=== PATIENT | male | born 1995 ===

== ENCOUNTER 2017-06-16 13:11 | Emergency (ER) | payer MEDICAID ==
[2017-06-16 13:12] VITALS: BMI 29.7
[2017-06-16 13:31] VITALS: BP 117/73; PULSE 74; RESP 18; TEMP 98.4; O2SAT 99
--- NOTE | 2017-06-16 13:54 | ED PDOC ---
HPI: CCC, URI, Sore Throat Time Seen by Provider: 06/16/17 13:15 Chief Complaint (Nursing): ENT Problem Chief Complaint (Provider): Sore throat History Per: Patient History/Exam Limitations: no limitations Have you had recent travel within the past 21 days to any of the following countries: [place], [place], [place] or [place]?: No Onset/Duration Of Symptoms: Days (4) Current Symptoms Are (Timing): Still Present Location Of Pain: Throat Sick Contacts (Context): None Associated Symptoms: Sore Throat Additional History Per: Patient Additional Complaint(s): The patient is a 21yo male, no past medical history, presents to the ED for evaluation of throat pain, present for the past 4 days. Patient reports the pain is worse at night and also reports some sputum. He denies any shortness of breath, chest pain and offers no additional medical complaints. Past Medical History Reviewed: Historical Data, Nursing Documentation, Vital Signs Vital Signs: Last Vital Signs Temp 98.4 F 06/16/17 13:28 Pulse 74 06/16/17 13:28 Resp 18 06/16/17 13:28 BP 117/73 06/16/17 13:28 Pulse Ox 99 06/16/17 13:58 - Medical History PMH: Bipolar Disorder Denies: Chronic Kidney Disease - Surgical History Surgical History: Appendectomy (laparoscopic, 01/2014 at [facility] [place]), Tonsillectomy - Family History Family History: States: Unknown Family Hx - Immunization History Hx Tetanus Toxoid Vaccination: No Hx Influenza Vaccination: No Hx Pneumococcal Vaccination: No - Home Medications Home Medications: Ambulatory Orders Medication Instructions Recorded Citalopram Hydrobromide [Celexa] 30 mg PO DAILY 10/27/16 [place] Carbonate [Lithobid] 300 mg PO BID 10/27/16 traZODone [trazODONE HYDROCHLORIDE] 50 mg PO HS 10/27/16 Methylprednisolone [Medrol Dose 4 mg PO DAILY #21 mg 06/16/17 Pack (21 tabs)] Promethazine HCl/Codeine 5 ml PO HS #80 ml 06/16/17 [Prometh-Codein 6.25-10 mg/5 ml] - Allergies Allergies/Adverse Reactions: Allergies Allergy/AdvReac Type Severity Reaction Status Date / Time No Known Allergies Allergy Verified 06/16/17 13:28 Review of Systems ROS Statement: Except As Marked, All Systems Reviewed And Found Negative Constitutional: Negative for: Fever, Chills ENT: Positive for: Throat Pain Cardiovascular: Negative for: Chest Pain Respiratory: Negative for: Shortness of Breath Physical Exam - Reviewed Nursing Documentation Reviewed: Yes Vital Signs Reviewed: Yes - Physical Exam Appears: Positive for: Well, Non-toxic, No Acute Distress Head Exam: Positive for: ATRAUMATIC, NORMAL INSPECTION, NORMOCEPHALIC Skin: Positive for: Normal Color, Warm, DRY Eye Exam: Positive for: EOMI, Normal appearance, PERRL ENT: Positive for: Normal ENT Inspection. Negative for: Pharyngeal Erythema, Tonsillar Exudate, Tonsillar Swelling Neck: Positive for: Normal, Supple Cardiovascular/Chest: Positive for: Regular Rate, Rhythm Respiratory: Negative for: Respiratory Distress Neurologic/Psych: Positive for: Alert, Oriented - ECG O2 Sat by Pulse Oximetry: 99 (RA) Pulse Ox Interpretation: Normal Medical Decision Making Medical Decision Making: Time: 1315 Impression: Cough, URI Plan: -- Rapid strep Reassess Strep (-) Scribe Attestation: Documented by Mary Jo Balderrama acting as a scribe for MICHAEL Lopez Provider Attestation: All medical record entries made by the Scribe were at my direction and personally dictated by me. I have reviewed the chart and agree that the record accurately reflects my personal performance of the history, physical exam, medical decision making, and the department course for this patient. I have also personally directed, reviewed, and agree with the discharge instructions and disposition. Disposition - Clinical Impression Clinical Impression: Pharyngitis - Patient ED Disposition Is Patient to be Admitted: No - Disposition Disposition: Routine/Home Disposition Time: 15:05 Condition: STABLE Prescriptions: Methylprednisolone [Medrol Dose Pack (21 tabs)] 4 mg PO DAILY #21 mg Promethazine HCl/Codeine [Prometh-Codein 6.25-10 mg/5 ml] 5 ml PO HS #80 ml Instructions: Pharyngitis (ED) Forms: [facility] (Hebrew) - POA Present On Arrival: None
== END 2017-06-16 15:38 | disposition home or self-care (01) ==
LOC: H.ER 13:11
DX: J02.9 Acute pharyngitis, unspecified (principal); F31.9 Bipolar disorder, unspecified

== ENCOUNTER 2017-09-01 14:18 | Emergency (ER) | payer MEDICAID ==
[2017-09-01 14:20] VITALS: BMI 29.7
[2017-09-01 14:48] VITALS: BP 127/78; PULSE 76; RESP 18; TEMP 98; O2SAT 99
--- NOTE | 2017-09-01 15:14 | ED PDOC ---
HPI: Psych/Substance Abuse Time Seen by Provider: 09/01/17 14:56 Chief Complaint (Nursing): Psychiatric Evaluation Chief Complaint (Provider): Insomnia History Per: Patient History/Exam Limitations: no limitations Onset/Duration Of Symptoms: Days (7) Current Symptoms Are (Timing): Still Present Suicide/Self Injury Attempted (Context): None Modifying Factor(s): None Associated Symptoms: denies: Suicidal Thoughts, Suicidal Plan Additional Complaint(s): 21yo male with history of bipolar disorder, currently on [place], Celexa and Trazodone, presents to the ED requesting evaluation as he has not been able to sleep properly for the past 7 days. Patient states he has been increasingly stressed due to heavy workload at school and is only able to sleep for 2-3 hours at a time. Patient states he called his psychiatrist but was not able to make an in person visit as he is not able to get an appointment until next month. Patient denies any suicidal ideation or homicidal ideation, hallucinations. He offers no physical complaints. Past Medical History Reviewed: Historical Data, Nursing Documentation, Vital Signs Vital Signs: Last Vital Signs Temp 98 F 09/01/17 14:39 Pulse 76 09/01/17 14:39 Resp 18 09/01/17 14:39 BP 127/78 09/01/17 14:39 Pulse Ox 99 09/01/17 14:39 - Medical History PMH: Bipolar Disorder Denies: Chronic Kidney Disease, Schizophrenia - Surgical History Surgical History: Appendectomy (laparoscopic, 01/2014 at [facility] [place] Tonsillectomy - Family History Family History: States: No Known Family Hx, Unknown Family Hx - Living Arrangements Living Arrangements: With Family - Immunization History Hx Tetanus Toxoid Vaccination: No Hx Influenza Vaccination: No Hx Pneumococcal Vaccination: No - Home Medications Home Medications: Ambulatory Orders Medication Instructions Recorded Citalopram Hydrobromide [Celexa] 30 mg PO DAILY 10/27/16 [place] Carbonate [Lithobid] 300 mg PO BID 10/27/16 traZODone [trazODONE HYDROCHLORIDE] 50 mg PO HS 10/27/16 Methylprednisolone [Medrol Dose 4 mg PO DAILY #21 mg 06/16/17 Pack (21 tabs)] Promethazine HCl/Codeine 5 ml PO HS #80 ml 06/16/17 [Prometh-Codein 6.25-10 mg/5 ml] - Allergies Allergies/Adverse Reactions: Allergies Allergy/AdvReac Type Severity Reaction Status Date / Time No Known Allergies Allergy Verified 06/16/17 13:28 Review of Systems Psych: Positive for: Other (insomnia). Negative for: Suicidal ideation Physical Exam - Reviewed Nursing Documentation Reviewed: Yes Vital Signs Reviewed: Yes - Physical Exam Appears: Positive for: Non-toxic Eye Exam: Positive for: Normal appearance Respiratory: Negative for: Respiratory Distress Neurologic/Psych: Positive for: Alert, Oriented, Mood/Affect (calm, cooperative) - ECG O2 Sat by Pulse Oximetry: 99 (RA) Pulse Ox Interpretation: Normal Medical Decision Making Medical Decision Making: Time: 1500 Impression: Crisis evaluation Plan: -- Crisis evaluation Reassess pt is stable for d/c with bipolar d/o Scribe Attestation: Documented by Mary Jo Balderrama acting as a scribe for MICHAEL Saldivar Provider Attestation: All medical record entries made by the Scribe were at my direction and personally dictated by me. I have reviewed the chart and agree that the record accurately reflects my personal performance of the history, physical exam, medical decision making, and the department course for this patient. I have also personally directed, reviewed, and agree with the discharge instructions and disposition. Disposition - Clinical Impression Clinical Impression: Bipolar disorder - Patient ED Disposition Is Patient to be Admitted: No Counseled Patient/Family Regarding: Need For Followup - Disposition Disposition: Routine/Home Disposition Time: 16:01 Condition: STABLE Instructions: Bipolar Disorder (ED) Forms: [employer] (Libyan)
== END 2017-09-01 16:32 | disposition home or self-care (01) ==
LOC: H.ER 14:18
DX: F31.9 Bipolar disorder, unspecified (principal)

== ENCOUNTER 2017-09-05 19:41 | Emergency (ER) | payer MEDICAID ==
[2017-09-05 19:42] VITALS: BMI 29.7
[2017-09-05 19:56] VITALS: BP 127/53; PULSE 84; RESP 18; TEMP 98; O2SAT 100
--- NOTE | 2017-09-05 20:22 | ED PDOC ---
HPI: Skin/Bite Injury Time Seen by Provider: 09/05/17 19:58 Chief Complaint (Nursing): Abnormal Skin Integrity Chief Complaint (Provider): Rash History Per: Patient History/Exam Limitations: no limitations Onset/Duration Of Symptoms: Gradual (worsening over 1 week) Current Symptoms Are (Timing): Still Present Additional Complaint(s): Luis M is a 21 y/o male who presents to the ED complaining of a rash to the right wrist, gradually increasing in size over the past week. Patient states he is sensitive to perfumes/[place]ologne and has had similar symptoms in the past, usually treated with a topical cream. States the rash is now itchy and becoming more painful, described as stinging. No medications taken at home prior to arrival. PMD: Dr. Kt Martinez Past Medical History Reviewed: Historical Data, Nursing Documentation, Vital Signs Vital Signs: Last Vital Signs Temp 98 F 09/05/17 19:53 Pulse 84 09/05/17 19:53 Resp 18 09/05/17 19:53 BP 127/53 L 09/05/17 19:53 Pulse Ox 100 09/05/17 19:53 - Medical History PMH: Bipolar Disorder Denies: Diabetes, Hepatitis, HIV, HTN, Chronic Kidney Disease, Schizophrenia , Seizures, Sexually Transmitted Disease - Surgical History Surgical History: [place] [facility] [place] - Family History Family History: States: Unknown Family Hx - Social History Current smoker - smoking cessation education provided: No Alcohol: None Drugs: Denies - Immunization History Hx Tetanus Toxoid Vaccination: No Hx Influenza Vaccination: No Hx Pneumococcal Vaccination: No - Home Medications Home Medications: Ambulatory Orders Medication Instructions Recorded Citalopram Hydrobromide [Celexa] 30 mg PO DAILY 10/27/16 [place] Carbonate [Lithobid] 300 mg PO BID 10/27/16 traZODone [trazODONE HYDROCHLORIDE] 50 mg PO HS 10/27/16 Methylprednisolone [Medrol Dose 4 mg PO DAILY #21 mg 06/16/17 Pack (21 tabs)] Promethazine HCl/Codeine 5 ml PO HS #80 ml 06/16/17 [Prometh-Codein 6.25-10 mg/5 ml] Hydrocortisone 1% Cream [Cortizone 30 applic TOP BID #1 tube 10/24/17 1% Cream] - Allergies Allergies/Adverse Reactions: Allergies Allergy/AdvReac Type Severity Reaction Status Date / Time No Known Allergies Allergy Verified 06/16/17 13:28 Review of Systems ROS Statement: Except As Marked, All Systems Reviewed And Found Negative Skin: Positive for: Rash (to right forearm, + itchiness, "stinging" pain) Physical Exam - Reviewed Nursing Documentation Reviewed: Yes Vital Signs Reviewed: Yes - Physical Exam Appears: Positive for: Well, Non-toxic, No Acute Distress Head Exam: Positive for: ATRAUMATIC, NORMAL INSPECTION, NORMOCEPHALIC Skin: Positive for: Warm, Dry, Rash (erythematous papules to the right forearm, + Blanching) Eye Exam: Positive for: Normal appearance Neck: Positive for: Normal Respiratory: Negative for: Respiratory Distress Neurologic/Psych: Positive for: Alert, Oriented - ECG O2 Sat by Pulse Oximetry: 100 (RA) Pulse Ox Interpretation: Normal Medical Decision Making Medical Decision Making: Time: 20:09 Clinical Impression: Contact dermatitis Upon provider evaluation patient is medically stable, and requires no further treatment in the ED at this time. Patient will be discharged home with Rx for hydrocortisone cream. Counseling was provided and all questions were answered regarding diagnosis and need for follow up with deli cook. There is agreement to discharge plan. Return if symptoms persist or worsen. Scribe Attestation: Documented by Anya Greene, acting as a scribe for Eve Mcfarland PA-C Provider Scribe Attestation: All medical record entries made by the Scribe were at my direction and personally dictated by me. I have reviewed the chart and agree that the record accurately reflects my personal performance of the history, physical exam, medical decision making, and the department course for this patient. I have also personally directed, reviewed, and agree with the discharge instructions and disposition. Disposition - Clinical Impression Clinical Impression: Contact dermatitis - Patient ED Disposition Is Patient to be Admitted: No Counseled Patient/Family Regarding: Diagnosis, Need For Followup, Rx Given - Disposition Disposition: Routine/Home Disposition Time: 20:09 Condition: STABLE Prescriptions: Hydrocortisone 1% Cream [Cortizone 1% Cream] 30 applic TOP BID #1 tube Instructions: Contact Dermatitis (ED) Forms: [employer] (Hungarian)
== END 2017-09-05 20:33 | disposition home or self-care (01) ==
LOC: H.ER 19:41
DX: L25.8 Unspecified contact dermatitis due to other agents (principal)

== ENCOUNTER 2017-09-06 15:27 | Emergency (ER) | payer MEDICAID ==
[2017-09-06 15:28] VITALS: BMI 29.7
--- NOTE | 2017-09-06 15:42 | ED PDOC ---
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 pain to b/l wrist extending to fingers without acute trauma. admits to burning sensation to fingers. Past Medical History Reviewed: Historical Data, Nursing Documentation, Vital Signs Vital Signs: Last Vital Signs Temp 98.5 F 09/06/17 15:35 Pulse 101 H 09/06/17 15:35 Resp 16 09/06/17 15:35 BP 115/76 09/06/17 15:35 Pulse Ox 100 09/06/17 15:35 - Medical History PMH: Bipolar Disorder Denies: Diabetes, Hepatitis, HIV, HTN, Chronic Kidney Disease, Schizophrenia , Seizures, Sexually Transmitted Disease - Surgical History Surgical History: Appendectomy (laparoscopic, 01/2014 at [facility] [place] Tonsillectomy - Family History Family History: States: Unknown Family Hx - Immunization History Hx Tetanus Toxoid Vaccination: No Hx Influenza Vaccination: No Hx Pneumococcal Vaccination: No - Home Medications Home Medications: Ambulatory Orders Medication Instructions Recorded Citalopram Hydrobromide [Celexa] 30 mg PO DAILY 10/27/16 [place] Carbonate [Lithobid] 300 mg PO BID 10/27/16 traZODone [trazODONE HYDROCHLORIDE] 50 mg PO HS 10/27/16 Methylprednisolone [Medrol Dose 4 mg PO DAILY #21 mg 06/16/17 Pack (21 tabs)] Promethazine HCl/Codeine 5 ml PO HS #80 ml 06/16/17 [Prometh-Codein 6.25-10 mg/5 ml] Hydrocortisone 1% Cream [Cortizone 30 applic TOP BID #1 tube 09/05/17 1% Cream] Vit B Comp/Vit E/Folic/Hc 104 [Sm 1 each PO DAILY #30 tablet 09/06/17 [place] C[facility]] - Allergies Allergies/Adverse Reactions: Allergies Allergy/AdvReac Type Severity Reaction Status Date / Time No Known Allergies Allergy Verified 06/16/17 13:28 Review of Systems ROS Statement: Except As Marked, All Systems Reviewed And Found Negative Musculoskeletal: Positive for: Hand Pain Physical Exam - Reviewed Nursing Documentation Reviewed: Yes Vital Signs Reviewed: Yes - Physical Exam Appears: Positive for: Well, Non-toxic, No Acute Distress Skin: Positive for: Normal Color, Warm, DRY Cardiovascular/Chest: Positive for: Regular Rate, Rhythm Respiratory: Positive for: CNT, Normal Breath Sounds Extremity: Positive for: Other (b/l wrist : (+) phalens test. neurovasc intact) Neurologic/Psych: Positive for: Alert, Oriented - ECG O2 Sat by Pulse Oximetry: 100 (RA) Pulse Ox Interpretation: Normal Medical Decision Making Medical Decision Making: (+) carpal tunnel syndrome given b/l wrist velcro splint will be d/c with folat and Vit B and collagen PO Disposition - Clinical Impression Clinical Impression: Carpal tunnel syndrome - Patient ED Disposition Is Patient to be Admitted: No Counseled Patient/Family Regarding: Diagnosis, Need For Followup, Rx Given - Disposition Referrals: [facility] [Outside] Disposition: Routine/Home Disposition Time: 16:06 Condition: STABLE Prescriptions: Vit B Comp/Vit E/Folic/Hc 104 [Sm [place] Vital Nutrients Cplt] 1 each PO DAILY # 30 tablet Instructions: Carpal Tunnel Syndrome (ED) Forms: [facility] (Polish), [facility] ED School/Work Excuse
[2017-09-06 15:45] VITALS: BP 115/76; PULSE 101; RESP 16; TEMP 98.5; O2SAT 100
== END 2017-09-06 16:16 | disposition home or self-care (01) ==
LOC: H.ER 15:27
DX: G56.03 Carpal tunnel syndrome, bilateral upper limbs (principal)

== ENCOUNTER 2017-10-09 08:45 | Emergency (ER) | payer MEDICAID ==
[2017-10-09 08:47] VITALS: BMI 31.3
[2017-10-09 08:50] VITALS: BP 125/71; PULSE 86; RESP 17; TEMP 97.9; O2SAT 96
--- NOTE | 2017-10-09 09:19 | ED PDOC ---
HPI: Back Time Seen by Provider: 10/09/17 09:07 Chief Complaint (Nursing): Back Pain Chief Complaint (Provider): Back pain History Per: Patient History/Exam Limitations: no limitations Onset/Duration Of Symptoms: Persistent Current Symptoms Are (Timing): Still Present Quality Of Discomfort: "Pain" Associated Symptoms: None Additional Complaint(s): 22yo male with past medical history of bipolar disorder, presents to the ED for evaluation of bilateral neck, upper back and mid back pain. Patient denies any injury to trauma to the sites; also denies any numbness or tingling. No other complaints. Past Medical History Reviewed: Historical Data, Nursing Documentation, Vital Signs Vital Signs: Last Vital Signs Temp 97.9 F 10/09/17 09:08 Pulse 86 10/09/17 09:08 Resp 17 10/09/17 09:08 BP 125/71 10/09/17 09:08 Pulse Ox 96 10/09/17 09:08 - Medical History PMH: Bipolar Disorder Denies: Diabetes, Hepatitis, HIV, HTN, Chronic Kidney Disease, Schizophrenia , Seizures, Sexually Transmitted Disease - Surgical History Surgical History: [place] [facility] [place] - Family History Family History: States: No Known Family Hx, Unknown Family Hx - Immunization History Hx Tetanus Toxoid Vaccination: No Hx Influenza Vaccination: No Hx Pneumococcal Vaccination: No - Home Medications Home Medications: Ambulatory Orders Medication Instructions Recorded Citalopram Hydrobromide [Celexa] 30 mg PO DAILY 10/27/16 [place] Carbonate [Lithobid] 300 mg PO BID 10/27/16 traZODone [trazODONE HYDROCHLORIDE] 50 mg PO HS 10/27/16 Methylprednisolone [Medrol Dose 4 mg PO DAILY #21 mg 06/16/17 Pack (21 tabs)] Promethazine HCl/Codeine 5 ml PO HS #80 ml 06/16/17 [Prometh-Codein 6.25-10 mg/5 ml] Hydrocortisone 1% Cream [Cortizone 30 applic TOP BID #1 tube 09/05/17 1% Cream] Vit B Comp/Vit E/Folic/Hc 104 [Sm 1 each PO DAILY #30 tablet 09/06/17 [place] [employer] Cplt] Naproxen [Naprosyn] 500 mg PO BID PRN #15 tablet 10/09/17 - Allergies Allergies/Adverse Reactions: Allergies Allergy/AdvReac Type Severity Reaction Status Date / Time No Known Allergies Allergy Verified 06/16/17 13:28 Review of Systems ROS Statement: Except As Marked, All Systems Reviewed And Found Negative Musculoskeletal: Positive for: Neck Pain, Shoulder Pain, Back Pain Neurological: Negative for: Weakness, Numbness Physical Exam - Reviewed Nursing Documentation Reviewed: Yes Vital Signs Reviewed: Yes - Physical Exam Appears: Positive for: Non-toxic, No Acute Distress Head Exam: Positive for: ATRAUMATIC, NORMAL INSPECTION, NORMOCEPHALIC Skin: Positive for: Normal Color Eye Exam: Positive for: Normal appearance Neck: Positive for: Normal, Painless ROM, Supple Cardiovascular/Chest: Positive for: Regular Rate, Rhythm Respiratory: Positive for: Normal Breath Sounds. Negative for: Respiratory Distress Back: Positive for: Normal Inspection. Negative for: Vertebral Tenderness Extremity: Positive for: Normal ROM. Negative for: Deformity, Swelling Neurologic/Psych: Positive for: Alert, Oriented - ECG O2 Sat by Pulse Oximetry: 96 (RA) Pulse Ox Interpretation: Normal Medical Decision Making Medical Decision Making: Time: 915 Impression: Musculoskeletal pain Plan: -- Flexeril 10 mg PO -- Motrin 600 mg PO Reassess Scribe Attestation: Documented by Mary Jo Balderrama acting as a scribe for Brittany Trinh MD. Provider Attestation: All medical record entries made by the Scribe were at my direction and personally dictated by me. I have reviewed the chart and agree that the record accurately reflects my personal performance of the history, physical exam, medical decision making, and the department course for this patient. I have also personally directed, reviewed, and agree with the discharge instructions and disposition. Disposition - Clinical Impression Clinical Impression: Musculoskeletal pain - Disposition Referrals: Melissa Turner MD [Medical Doctor] - Disposition: Routine/Home Disposition Time: 09:19 Condition: STABLE Prescriptions: Naproxen [Naprosyn] 500 mg PO BID PRN #15 tablet PRN Reason: Pain, Moderate (4-7) Instructions: Musculoskeletal Pain (ED) Forms: [employer] [facility] (Luxembourger)
== END 2017-10-09 10:02 | disposition home or self-care (01) ==
LOC: H.ER 08:45
DX: M54.9 Dorsalgia, unspecified (principal); F31.9 Bipolar disorder, unspecified

== ENCOUNTER 2018-02-05 19:39 | Emergency (ER) | payer MEDICAID ==
[2018-02-05 19:40] VITALS: BMI 31.3
[2018-02-05 20:28] VITALS: BP 125/77; PULSE 96; RESP 16; TEMP 97.9; O2SAT 98
--- NOTE | 2018-02-05 21:08 | ED PDOC ---
Upper Extremity Pain/Injury Time Seen by Provider: 02/05/18 20:37 Chief Complaint (Nursing): Finger,Hand,&Wrist Chief Complaint (Provider): Left wrist pain History Per: Patient History/Exam Limitations: no limitations Onset/Duration Of Symptoms: Days Current Symptoms Are (Timing): Still Present Quality: "Pain" Exacerbating Factor(s): Strenuous Use Of Affected Area, Movement Additional Complaint(s): 22yo male, past medical history of bipolar disorder (compliant with medication) , right hand dominant, presents to the ED with complaints of left wrist pain for the past week. He reports when the pain started, he might have "slept on it wrong" and put a lot of pressure on that area. He states the pain is worse with movement and today has been progressively worse since the morning, prompting his visit. He denies any injury, trauma, weakness or numbness to the area. Patient states he has not taken any medication for his symptoms. He offers no other medical complaints. PMD: Dr. Torres Past Medical History Reviewed: Historical Data, Nursing Documentation, Vital Signs Vital Signs: Last Vital Signs Temp 97.9 F 02/05/18 20:25 Pulse 96 H 02/05/18 20:25 Resp 16 02/05/18 20:25 BP 125/77 02/05/18 20:25 Pulse Ox 98 02/05/18 20:25 - Medical History PMH: Bipolar Disorder Denies: Diabetes, Hepatitis, HIV, HTN, Chronic Kidney Disease, Schizophrenia , Seizures, Sexually Transmitted Disease - Surgical History Surgical History: Appendectomy (laparoscopic, 01/2014 at [facility] [place] Tonsillectomy - Family History Family History: States: Unknown Family Hx - Immunization History Hx Tetanus Toxoid Vaccination: No Hx Influenza Vaccination: No Hx Pneumococcal Vaccination: No - Home Medications Home Medications: Ambulatory Orders Medication Instructions Recorded Citalopram Hydrobromide [Celexa] 30 mg PO DAILY 10/27/16 [place] Carbonate [Lithobid] 300 mg PO BID 10/27/16 traZODone [trazODONE HYDROCHLORIDE] 50 mg PO HS 10/27/16 Methylprednisolone [Medrol Dose 4 mg PO DAILY #21 mg 06/16/17 Pack (21 tabs)] Promethazine HCl/Codeine 5 ml PO HS #80 ml 06/16/17 [Prometh-Codein 6.25-10 mg/5 ml] Hydrocortisone 1% Cream [Cortizone 30 applic TOP BID #1 tube 09/05/17 1% Cream] Vit B Comp/Vit E/Folic/Hc 104 [Sm 1 each PO DAILY #30 tablet 09/06/17 [place] Vital Nutrients Cplt] Naproxen [Naprosyn] 500 mg PO BID PRN #15 tablet 10/09/17 Ibuprofen [Motrin Tab] 800 mg PO Q8 #21 tab 02/05/18 - Allergies Allergies/Adverse Reactions: Allergies Allergy/AdvReac Type Severity Reaction Status Date / Time No Known Allergies Allergy Verified 02/05/18 20:25 Review of Systems ROS Statement: Except As Marked, All Systems Reviewed And Found Negative Musculoskeletal: Positive for: Hand Pain (left wrist pain) Neurological: Negative for: Weakness, Numbness Physical Exam - Reviewed Nursing Documentation Reviewed: Yes Vital Signs Reviewed: Yes - Physical Exam Comments: GENERAL: Patient is awake, alert, and oriented x3. No acute distress noted. SKIN: Warm, dry; (-) cyanosis. CARDIAC: (-) murmur RESPIRATORY: lungs clear to auscultation bilaterally (-) rales (-) wheezing (-) rhonchi LEFT WRIST: (-) Tenderness, (-) swelling, (-) ecchymosis of left wrist. (-) overlying skin changes (-) deformity. (-) snuff-box tenderness. (-) distal neurovascular deficit. Elbow, hand and digits: (-) tenderness, (+) FROM of elbow, wrist and digits. NEURO: Performance Test Architect strength 5/5 bilateral upper extremities. - ECG O2 Sat by Pulse Oximetry: 98 (RA) Pulse Ox Interpretation: Normal Medical Decision Making Medical Decision Making: Impression: Wrist sprain Plan: -- Toradol 30 mg IM -- Jareth bandage Time: 2126 Patient remains awake, alert, oriented x 3 and resting comfortably with improved pain. On exam, neck is supple, lungs are clear, heart is at regular rate and rhythm. Repeat neurological exam shows no focal findings or deficit. Diagnostic results d/w the patient in great detail. Dx of acute wrist pain/ sprain d/w the patient. Based on history, exam and diagnostic results plan will be for discharge and outpatient follow up. Advised to follow up with primary care physician in 1-2 days without fail. Advised to take medication as prescribed. Return to the emergency room at any time for any new or worsening symptoms. Patient states he fully agrees with and understands discharge instructions. States that he agrees with the plan and disposition. Verbalized and repeated discharge instructions and plan. I have given the patient opportunity to ask any additional questions. Scribe Attestation: Documented by Mary Jo Balderrama acting as a scribe for MICHAEL Ricketts Provider Attestation: All medical record entries made by the Scribe were at my direction and personally dictated by me. I have reviewed the chart and agree that the record accurately reflects my personal performance of the history, physical exam, medical decision making, and the department course for this patient. I have also personally directed, reviewed, and agree with the discharge instructions and disposition. Disposition - Clinical Impression Clinical Impression: Wrist sprain, Acute wrist pain - Patient ED Disposition Is Patient to be Admitted: No Counseled Patient/Family Regarding: Diagnosis, Need For Followup, Rx Given - Disposition Referrals: [facility] [Provider Group] Disposition: Routine/Home Disposition Time: 21:47 Condition: STABLE Prescriptions: Ibuprofen [Motrin Tab] 800 mg PO Q8 #21 tab Instructions: Wrist Sprain (DC), Common Wrist Injuries Forms: [facility] (Spanish) Print Language: KAZAKH - POA Present On Arrival: None
== END 2018-02-05 22:03 | disposition home or self-care (01) ==
LOC: H.ER 19:39
DX: S63.302A Traumatic rupture of unspecified ligament of left wrist, initial encounter (principal); M25.532 Pain in left wrist; Z86.59 Personal history of other mental and behavioral disorders
CPT/HCPCS: 96372; 99283; J1885

== ENCOUNTER 2018-03-22 16:12 | Emergency (ER) | payer MEDICAID ==
[2018-03-22 16:13] VITALS: BMI 31.3
[2018-03-22 16:31] VITALS: O2SAT 99
--- NOTE | 2018-03-22 17:06 | ED PDOC ---
HPI: Headache Chief Complaint (Provider): headache History Per: Patient History/Exam Limitations: no limitations Onset/Duration Of Symptoms: Days (2) Current Symptoms Are (Timing): Still Present Severity: Moderate Pain Scale Rating Of: 7 Quality: Tightness, "Pain" Associated Symptoms: Extremity Weakness. denies: Photophobia, Blurred Vision, Vomiting Additional Complaint(s): 22 yr old M presents to ED with complaint of gradually worsening headache since yesterday. Describes a "tightness" from bilateral frontal area to occipital area including bilateral periorbital area. Associated symptoms are nasal congestion, cough, sore throat exacerbated by fluids and liquids, subjective fever. Denies photophobia, sensitivity to sound, nausea, vomiting, dizziness, LOC. He did not take any medication. No sick contacts at home. Last experienced similar symtoms 1 yr ago. PMD: Dr. Torres PMHx: Bipolar Disorder Medications: lithium 450mg PO BID, Celexa 20mg PO QD, Trazodone 50mg PO QHS - Risk Factors SAH Risk Factors: Neg: Sudden Onset Of Pain, Worst Headache Of Life <Octavia Wilkins - Last Filed: 03/23/18 09:47> <Jessica Calhoun - Last Filed: 03/27/18 04:51> Chief Complaint (Nursing): Headache Supervising Attending Note - Supervising Attending Note The Documented history was done by the: Physician Lean Facilitator The documented physical exam was done by the: Physician Lean Facilitator The documented procedures were done by the: Physician Lean Facilitator - Attestation: I have personally seen and examined this patient.: Yes I have fully participated in the care of the patient.: Yes I have reviewed all pertinent clinical information: Yes <Jessica Calhoun Y - Last Filed: 03/27/18 04:51> Past Medical History Vital Signs: Last Vital Signs Temp 99.9 F H 03/22/18 16:29 Pulse 108 H 03/22/18 16:29 Resp 16 03/22/18 16:29 BP 123/81 03/22/18 16:29 Pulse Ox 99 03/22/18 16:29 - Medical History PMH: Bipolar Disorder Denies: Diabetes, Hepatitis, HIV, HTN, Chronic Kidney Disease, Schizophrenia , Seizures, Sexually Transmitted Disease - Surgical History Surgical History: [place] [facility] [place] - Family History Family History: States: Unknown Family Hx - Living Arrangements Living Arrangements: With Family - Social History Current smoker - smoking cessation education provided: No Ex-Smoker (has not smoked in the last 12 months): No Alcohol: None Drugs: Denies - Immunization History Hx Tetanus Toxoid Vaccination: No Hx Influenza Vaccination: No Hx Pneumococcal Vaccination: No <Octavia Wilkins - Last Filed: 03/23/18 09:47> Vital Signs: Last Vital Signs Temp 98.7 F 03/22/18 19:04 Pulse 77 03/22/18 19:04 Resp 18 03/22/18 19:04 BP 130/62 03/22/18 19:04 Pulse Ox 99 03/23/18 09:47 <Jessica Calhoun - Last Filed: 03/27/18 04:51> - Home Medications Home Medications: Ambulatory Orders Medication Instructions Recorded Citalopram Hydrobromide [Celexa] 30 mg PO DAILY 10/27/16 [place] Carbonate [Lithobid] 300 mg PO BID 10/27/16 traZODone [trazODONE HYDROCHLORIDE] 50 mg PO HS 10/27/16 Methylprednisolone [Medrol Dose 4 mg PO DAILY #21 mg 06/16/17 Pack (21 tabs)] Promethazine HCl/Codeine 5 ml PO HS #80 ml 06/16/17 [Prometh-Codein 6.25-10 mg/5 ml] Hydrocortisone 1% Cream [Cortizone 30 applic TOP BID #1 tube 09/05/17 1% Cream] Vit B Comp/Vit E/Folic/Hc 104 [Sm 1 each PO DAILY #30 tablet 09/06/17 [place] Vital Nutrients Cplt] Naproxen [Naprosyn] 500 mg PO BID PRN #15 tablet 10/09/17 Ibuprofen [Motrin Tab] 800 mg PO Q8 #21 tab 02/05/18 Ibuprofen [Motrin] 600 mg PO Q6H PRN #20 tab 03/22/18 Oseltamivir [Tamiflu] 75 mg PO BID #10 cap 03/22/18 Prednisone 50 mg PO ONCE #1 tablet 03/26/18 - Allergies Allergies/Adverse Reactions: Allergies Allergy/AdvReac Type Severity Reaction Status Date / Time No Known Allergies Allergy Verified 03/26/18 11:43 Review of Systems Constitutional: Positive for: Weakness. Negative for: Fever, Chills Eyes: Negative for: Vision Change, Eyelid Inflammation ENT: Positive for: Nose Congestion, Throat Pain. Negative for: Nose Discharge Cardiovascular: Negative for: Chest Pain, Palpitations Respiratory: Positive for: Cough. Negative for: Shortness of Breath, Sputum, Wheezing Gastrointestinal: Positive for: Constipation. Negative for: Nausea, Vomiting, Abdominal Pain Genitourinary Male: Positive for: Dysuria Musculoskeletal: Negative for: Neck Pain, Shoulder Pain, Arm Pain Skin: Negative for: Rash, Lesions Neurological: Positive for: Weakness, Headache. Negative for: Confusion, Seizures, Dizziness Psych: Negative for: Suicidal ideation <Octavia Wilkins - Last Filed: 03/23/18 09:47> Physical Exam - Physical Exam Appears: Positive for: No Acute Distress Head Exam: Positive for: ATRAUMATIC, NORMOCEPHALIC Skin: Positive for: Normal Color, Warm, Dry Eye Exam: Positive for: EOMI, PERRL ENT: Positive for: Nasal Congestion, Pharyngeal Erythema. Negative for: Tonsillar Exudate Neck: Positive for: Painless ROM, Supple Cardiovascular/Chest: Positive for: Regular Rate, Rhythm. Negative for: Gallop , Murmur Respiratory: Positive for: Normal Breath Sounds. Negative for: Rales, Rhonchi Pulses-Carotid (L): 2+ Pulses-Carotid (R): 2+ Pulses-Radial (L): 2+ Pulses-Radial (R): 2+ Gastrointestinal/Abdominal: Positive for: Bowel Sounds (present), Soft. Negative for: Tenderness Back: Positive for: Normal Inspection Extremity: Positive for: Normal ROM. Negative for: Tenderness, Pedal Edema, Calf Tenderness Lymphatic: Negative for: Adenopathy Neurologic/Psych: Positive for: Alert, day care center director II-XII, Oriented, Gait (normal). Negative for: Motor/Sensory Deficits <Octavia Wilkins - Last Filed: 03/23/18 09:47> - ECG O2 Sat by Pulse Oximetry: 99 - Progress ED Course And Treament: -Rapid strep:negative -Influenza A/B:negative -Udip:negative -Motrin 600mg PO once -patient symptoms improved, remained afebrile with stable vital signs Condition: Improved <Octavia Wilkins - Last Filed: 03/23/18 09:47> Disposition - Patient ED Disposition Is Patient to be Admitted: No Counseled Patient/Family Regarding: Need For Followup, Rx Given - Disposition Disposition: Routine/Home Disposition Time: 19:05 <Octavia Wilkins - Last Filed: 03/23/18 09:47> <Jessica Clahoun - Last Filed: 03/27/18 04:51> - Clinical Impression Clinical Impression: Flu-like symptoms - Disposition Referrals: [facility] [Outside] [facility] [Outside] Condition: IMPROVED Additional Instructions: follow up with your primary doctor in 1-2 days return to the ED with any worsening or concerning symptoms Prescriptions: Ibuprofen [Motrin] 600 mg PO Q6H PRN #20 tab PRN Reason: Pain, Moderate (4-7) Oseltamivir [Tamiflu] 75 mg PO BID #10 cap Instructions: Viral Syndrome (DC) Forms: [facility] (Jordanian)
[2018-03-22 19:04] VITALS: BP 130/62; PULSE 77; RESP 18; TEMP 98.7
== END 2018-03-22 19:04 | disposition home or self-care (01) ==
LOC: H.ER 16:12
DX: J11.1 Influenza due to unidentified influenza virus with other respiratory manifestations (principal); F31.9 Bipolar disorder, unspecified

== ENCOUNTER 2018-03-26 10:30 | Emergency (ER) | payer MEDICAID ==
[2018-03-26 10:30] VITALS: BMI 31.3
--- NOTE | 2018-03-26 11:50 | ED PDOC ---
HPI: CCC, URI, Sore Throat Time Seen by Provider: 03/26/18 10:37 Chief Complaint (Nursing): ENT Problem Chief Complaint (Provider): Continues throat pain x 4 days History Per: Patient History/Exam Limitations: no limitations Have you had recent travel within the past 21 days to any of the following countries: [place], [place], [place] or [place]?: No Onset/Duration Of Symptoms: Days Current Symptoms Are (Timing): Still Present Location Of Pain: Throat Additional Complaint(s): 22 yo male with no medical problems seen in ER 4 days ago for body aches and sore throat. Pt diagosed with influenza and given tamiflu. Pt reports feeling better except for throat pain. PT is only taking tamiflu and no other medications for symptoms. PT denies fever/chills. PT has not seen his PMD since previous visit. Past Medical History Reviewed: Historical Data, Nursing Documentation, Vital Signs Vital Signs: Last Vital Signs Temp 97 F L 03/26/18 10:48 Pulse 76 03/26/18 11:44 Resp 20 03/26/18 11:44 BP 114/77 03/26/18 10:48 Pulse Ox 98 03/26/18 11:50 - Medical History PMH: Bipolar Disorder Denies: Diabetes, Hepatitis, HIV, HTN, Chronic Kidney Disease, Schizophrenia , Seizures, Sexually Transmitted Disease - Surgical History Surgical History: [place] [facility] [place] - Family History Family History: States: Unknown Family Hx - Living Arrangements Living Arrangements: With Family - Social History Current smoker - smoking cessation education provided: No - Immunization History Hx Tetanus Toxoid Vaccination: No Hx Influenza Vaccination: No Hx Pneumococcal Vaccination: No - Home Medications Home Medications: Ambulatory Orders Medication Instructions Recorded Citalopram Hydrobromide [Celexa] 30 mg PO DAILY 10/27/16 [place] Carbonate [Lithobid] 300 mg PO BID 10/27/16 traZODone [trazODONE HYDROCHLORIDE] 50 mg PO HS 10/27/16 Methylprednisolone [Medrol Dose 4 mg PO DAILY #21 mg 06/16/17 Pack (21 tabs)] Promethazine HCl/Codeine 5 ml PO HS #80 ml 06/16/17 [Prometh-Codein 6.25-10 mg/5 ml] Hydrocortisone 1% Cream [Cortizone 30 applic TOP BID #1 tube 09/05/17 1% Cream] Vit B Comp/Vit E/Folic/Hc 104 [Sm 1 each PO DAILY #30 tablet 09/06/17 [place] Vital Nutrients Cplt] Naproxen [Naprosyn] 500 mg PO BID PRN #15 tablet 10/09/17 Ibuprofen [Motrin Tab] 800 mg PO Q8 #21 tab 02/05/18 Ibuprofen [Motrin] 600 mg PO Q6H PRN #20 tab 03/22/18 Oseltamivir [Tamiflu] 75 mg PO BID #10 cap 03/22/18 Prednisone 50 mg PO ONCE #1 tablet 03/26/18 - Allergies Allergies/Adverse Reactions: Allergies Allergy/AdvReac Type Severity Reaction Status Date / Time No Known Allergies Allergy Verified 03/26/18 11:43 Review of Systems ROS Statement: Except As Marked, All Systems Reviewed And Found Negative Constitutional: Negative for: Fever, Chills ENT: Positive for: Throat Pain Physical Exam - Reviewed Nursing Documentation Reviewed: Yes Vital Signs Reviewed: Yes - Physical Exam Appears: Positive for: Well, Non-toxic, No Acute Distress Head Exam: Positive for: ATRAUMATIC, NORMAL INSPECTION, NORMOCEPHALIC Skin: Positive for: Normal Color, Warm, DRY Eye Exam: Positive for: Normal appearance ENT: Positive for: Normal ENT Inspection Neck: Positive for: Normal, Painless ROM Cardiovascular/Chest: Positive for: Regular Rate, Rhythm Respiratory: Positive for: Normal Breath Sounds. Negative for: Accessory Muscle Use, Respiratory Distress Back: Positive for: Normal Inspection Extremity: Positive for: Normal ROM Neurologic/Psych: Positive for: Alert, Oriented - ECG O2 Sat by Pulse Oximetry: 98 Disposition - Clinical Impression Clinical Impression: Viral pharyngitis - Patient ED Disposition Is Patient to be Admitted: No Counseled Patient/Family Regarding: Diagnosis, Need For Followup, Rx Given - Disposition Disposition: Routine/Home Disposition Time: 12:47 Condition: STABLE Prescriptions: Prednisone 50 mg PO ONCE #1 tablet Instructions: Viral Pharyngitis Forms: [facility] (Kazakh)
[2018-03-26 13:23] VITALS: BP 125/78; PULSE 79; RESP 15; TEMP 98.8; O2SAT 99
== END 2018-03-26 13:24 | disposition home or self-care (01) ==
LOC: H.ER 10:30
DX: J02.9 Acute pharyngitis, unspecified (principal); F31.9 Bipolar disorder, unspecified

== ENCOUNTER 2018-10-29 18:17 | Emergency (ER) | payer MEDICAID ==
[2018-10-29 18:17] VITALS: BMI 31.3
--- NOTE | 2018-10-29 22:27 | ED PDOC ---
HPI: General Adult Time Seen by Provider: 10/29/18 21:46 Chief Complaint (Nursing): Flu-like Symptoms Chief Complaint (Provider): Cough, today History Per: Patient History/Exam Limitations: no limitations Additional Complaint(s): 23 yo male with no medical problems presents for evaluation of cough today and chills. Pt states the first time he coughed this morning and there was blood in his sputum. Pt denies recent travel or similar in the past. Pt states that he does not have chest pain or SOB. Pt does reports headache, mild behind eyes and chills. No fever. No medications today for fever or symptoms. Past Medical History Reviewed: Historical Data, Nursing Documentation, Vital Signs Vital Signs: Last Vital Signs Temp 98.4 F 10/29/18 20:10 Pulse 107 H 10/29/18 20:10 Resp 16 10/29/18 20:10 BP 122/88 10/29/18 20:10 Pulse Ox 98 10/29/18 20:10 - Medical History PMH: Bipolar Disorder Denies: Diabetes, Hepatitis, HIV, HTN, Chronic Kidney Disease, Schizophrenia, Seizures, Sexually Transmitted Disease - Surgical History Surgical History: Appendectomy (laparoscopic, 01/2014 at [facility] [place] Tonsillectomy - Family History Family History: States: Unknown Family Hx - Living Arrangements Living Arrangements: With Family - Social History Alcohol: None Drugs: Denies - Immunization History Hx Tetanus Toxoid Vaccination: No Hx Influenza Vaccination: No Hx Pneumococcal Vaccination: No - Home Medications Home Medications: Ambulatory Orders Medication Instructions Recorded Citalopram Hydrobromide [Celexa] 30 mg PO DAILY 10/27/16 [place] Carbonate [Lithobid] 300 mg PO BID 10/27/16 traZODone [trazODONE HYDROCHLORIDE] 50 mg PO HS 10/27/16 Methylprednisolone [Medrol Dose 4 mg PO DAILY #21 mg 06/16/17 Pack (21 tabs)] Promethazine HCl/Codeine 5 ml PO HS #80 ml 06/16/17 [Prometh-Codein 6.25-10 mg/5 ml] Hydrocortisone 1% Cream [Cortizone 30 applic TOP BID #1 tube 09/05/17 1% Cream] Vit B Comp/Vit E/Folic/Hc 104 [Sm 1 each PO DAILY #30 tablet 09/06/17 [place] Vital Nutrients Cplt] Naproxen [Naprosyn] 500 mg PO BID PRN #15 tablet 10/09/17 Ibuprofen [Motrin Tab] 800 mg PO Q8 #21 tab 02/05/18 Ibuprofen [Motrin] 600 mg PO Q6H PRN #20 tab 03/22/18 Oseltamivir Cap [Tamiflu] 75 mg PO BID #10 cap 03/22/18 Prednisone 50 mg PO ONCE #1 tablet 03/26/18 Amoxicillin/Clavulanate [Augmentin 1 tab PO BID #20 tab 10/29/18 875 MG-125 MG] Promethazine HCl/Codeine 10 ml PO Q8H PRN #150 ml 10/29/18 [Prometh-Codein 6.25-10 mg/5 ml] - Allergies Allergies/Adverse Reactions: Allergies Allergy/AdvReac Type Severity Reaction Status Date / Time No Known Allergies Allergy Verified 10/29/18 20:14 Review of Systems ROS Statement: Except As Marked, All Systems Reviewed And Found Negative Constitutional: Positive for: Chills. Negative for: Fever, Sweats Cardiovascular: Negative for: Chest Pain, Palpitations Respiratory: Positive for: Cough, Hemoptysis. Negative for: Shortness of Breath, Pleuritic Pain, Sputum, Wheezing Neurological: Positive for: Headache. Negative for: Weakness, Numbness Physical Exam - Reviewed Nursing Documentation Reviewed: Yes Vital Signs Reviewed: Yes - Physical Exam Appears: Positive for: Well, Non-toxic, No Acute Distress Head Exam: Positive for: ATRAUMATIC, NORMAL INSPECTION, NORMOCEPHALIC Skin: Positive for: Normal Color, Warm, DRY Eye Exam: Positive for: Normal appearance ENT: Positive for: Normal ENT Inspection Neck: Positive for: Normal, Painless ROM Cardiovascular/Chest: Positive for: Regular Rate, Rhythm Respiratory: Positive for: CNT, Normal Breath Sounds Gastrointestinal/Abdominal: Positive for: Normal Exam, Soft Back: Positive for: Normal Inspection Extremity: Positive for: Normal ROM Neurologic/Psych: Positive for: Alert, Oriented - ECG O2 Sat by Pulse Oximetry: 98 Pulse Ox Interpretation: Normal Medical Decision Making Medical Decision Making: CXR without acute abnormalities. Disposition - Clinical Impression Clinical Impression: Cough - Patient ED Disposition Is Patient to be Admitted: No Counseled Patient/Family Regarding: Diagnosis, Need For Followup, Rx Given - Disposition Disposition: Routine/Home Disposition Time: 22:28 Condition: GOOD Prescriptions: Amoxicillin/Clavulanate [Augmentin 875 MG-125 MG] 1 tab PO BID #20 tab Promethazine HCl/Codeine [Prometh-Codein 6.25-10 mg/5 ml] 10 ml PO Q8H PRN #150 ml PRN Reason: Cough Instructions: Cough in Adults Forms: [facility] (South Sudanese), [facility] ED School/Work Excuse
[2018-10-29 22:36] VITALS: BP 134/89; PULSE 94; RESP 18; TEMP 98.1; O2SAT 100
--- NOTE | 2018-10-30 10:23 | RAD ---
Date of service: 10/29/2018 HISTORY: Cough and congestion COMPARISON: No prior. TECHNIQUE: Chest PA and lateral FINDINGS: LINES AND TUBES: None. LUNG AND PLEURA: The lungs are well inflated and clear. No pleural effusion or pneumothorax. HEART AND MEDIASTINUM: The heart is not enlarged. No aortic atherosclerotic calcification present. The hilar and mediastinal contours are within normal limits. SKELETAL STRUCTURES: The bony structures are within normal limits for the patient's age. VISUALIZED UPPER ABDOMEN: Normal. OTHER FINDINGS: None. IMPRESSION: No active pulmonary disease.
== END 2018-10-29 22:48 | disposition home or self-care (01) ==
LOC: H.ER 18:17
DX: R05 Cough (principal); Z86.59 Personal history of other mental and behavioral disorders